=== PATIENT | female | born 1945 | race Caucasian/White ===

== ENCOUNTER 2019-05-21 12:35 | Outpatient (CLI) | payer MEDICARE, BC, SELFPAY ==
--- NOTE | 2019-05-21 12:50 | US_ITS ---
WS: [id number] THYROID ULTRASOUND HISTORY: HISTORY OF NODULE COMPARISON: 11/17/2018 Right lobe: 4.1 cm x 1.4 cm x 1.6 cm. Volume: 4.8 cm3. Normal size gland. Hypoechoic nodule with a few scattered cystic nodules in the RIGHT thyroid. Nodule is in the mid gland with ill-defined margins measuring 1.3 x 0.7 x 0.9 cm. Mild increased vascularit y. Left lobe: 5.2 cm x 1.8 cm x 2.1 cm. Volume: 10.4 cm3. Slightly enlarged thyroid. Multiple nodules ill-defined throughout the gland. Some these nodules cont ain increased vascularity. Largest nodule in the inferior pole measures 2.6 x 1.7 x 1.9 cm. Margins a re ill-defined and this nodule is hypervascular. There are additional scattered ill-defined nodules t hroughout the LEFT gland. Isthmus: 0.2 cm. US/US thyroid [id number] IMPRESSION: 1. Abnormal LEFT thyroid gland. Ill-defined nodule in the lower pole measures 2.6 x 1.7 x 1.9 cm. Slightly increased in size since the prior study. Concern i s for malignancy. Hypervascular nodule. Recommend surgical removal. 2. Moderate suspicion for malignancy smaller nodule in the mid RIGHT thyroid. This nodule remains stable in size.
== END 2019-05-21 12:36 | disposition home or self-care (01) ==
LOC: RAD 12:42 → RADWPI 12:55
PROVIDERS: Family Provider Family Medicine; PCP Family Medicine; Visit Provider Otolaryngology
DX: E04.1 Nontoxic single thyroid nodule (principal); R94.6 Abnormal results of thyroid function studies
CPT/HCPCS: 76536

== ENCOUNTER 2019-07-15 14:04 | Outpatient (CLI) | payer MEDICARE, BC, SELFPAY ==
--- NOTE | 2019-07-15 14:10 | MM_ITS ---
WS: [id number] BILATERAL SCREENING DIGITAL MAMMOGRAM WITH CAD HISTORY: SCREENING COMPARISON: 04/11/2018 and 03/28/2017 Bilateral CC and MLO views submitted. Computer aided detection analyzed. Breast composition: The breasts are heterogeneously dense, which may obscure small masses. No suspici ous masses, microcalcifications or architectural distortion. Stable asymmetries. Benign coarse calcif ication in the anterior LEFT breast. MM/[id number] IMPRESSION: BI-RADS: 2-Benign FOLLOW UP: 1 Year Follow-up
== END 2019-07-15 14:05 | disposition home or self-care (01) ==
LOC: RADSHAW 14:09
PROVIDERS: PCP Family Medicine; Visit Provider Family Medicine
DX: Z12.31 Encounter for screening mammogram for malignant neoplasm of breast (principal)
CPT/HCPCS: 77067

== ENCOUNTER 2020-07-22 07:16 | Outpatient (CLI) | payer MEDICARE, BC, SELFPAY ==
--- NOTE | 2020-07-22 07:23 | MM_ITS ---
WS: [id number] Bilateral screening digital mammogram, 07/22/2020 Clinical Data: SCREENING Comparison: 07/15/2019, 04/11/2018, 03/28/2017. Findings: The breast parenchymal pattern shows heterogeneous density No spiculated masses or clustered calcific ations are seen. There are no secondary signs of carcinoma. MM/[id number] Impression: 1. Negative bilateral mammogram unchanged. 2. Recommend annual screening mammograms. BIRADS: 1-Negative FOLLOW UP: 1 Year Follow-up The CAD power checker was used.
== END 2020-07-22 07:17 | disposition home or self-care (01) ==
LOC: RADSHAW 07:18
PROVIDERS: PCP Family Medicine; Visit Provider Family Medicine
DX: Z12.31 Encounter for screening mammogram for malignant neoplasm of breast (principal)
CPT/HCPCS: 77067

== ENCOUNTER → 2021-05-02 10:02 | Outpatient (BNVA) | payer MEDICARE, BC, SELFPAY | PROVIDERS: PCP Family Medicine; Visit Provider Family Medicine | DX: Z13.6 Encounter for screening for cardiovascular disorders (principal); E04.1 Nontoxic single thyroid nodule; Z79.899 Other long term (current) drug therapy | CPT/HCPCS: 80053; 80061; 81000; 85025 ==

== ENCOUNTER 2021-06-08 13:19 | Outpatient (CLI) | payer MEDICARE, BC, SELFPAY ==
--- NOTE | 2021-06-08 13:45 | US_ITS ---
WS: [id number] THYROID ULTRASOUND HISTORY: thyroid nodule COMPARISON: 05/21/2019, 11/17/2018 Right lobe: 1.4 cm x 1.6 cm x 1.8 cm (w x ap x l). Volume: 2.2 cm3. Hypoechoic nodule mid RIGHT thyroid with a few cystic areas measures 9 x 9 x 1.1 cm. No increase in s ize. Additional mild heterogeneity throughout the gland. Left lobe: 2.6 cm x 2.5 cm x 6.2 cm (w x ap x l). Volume: 20.5 cm3. Diffusely abnormal thyroid. Thyroid is enlarged and lobulated with multiple scattered hypoechoic nodu les. Numerous scattered echogenic foci. Multiple small nodules become confluent throughout the gland. Isthmus: 0.3 cm. US/US thyroid [id number] IMPRESSION: 1. Enlarged nodular LEFT thyroid a few echogenic foci. As discussed seen on th e prior study malignancy is not excluded. No significant interval change since the prior examination. Patient would benefit from surgical consultation. 2. No change hypoechoic nodule RIGHT thyroid.
== END 2021-06-08 13:20 | disposition home or self-care (01) ==
LOC: RAD 13:22
PROVIDERS: PCP Family Medicine; Visit Provider Family Medicine
DX: E04.1 Nontoxic single thyroid nodule (principal)
CPT/HCPCS: 76536

== ENCOUNTER → 2021-07-12 10:50 | Outpatient (BNVA) | payer MEDICARE, BC, SELFPAY | PROVIDERS: PCP Family Medicine; Visit Provider Otolaryngology | DX: E04.2 Nontoxic multinodular goiter (principal) | CPT/HCPCS: 99203; 99204 ==

== ENCOUNTER 2021-08-09 11:06 | Outpatient (CLI) | payer MEDICARE, BC, SELFPAY ==
--- NOTE | 2021-08-09 11:11 | MM_ITS ---
WS: [id number] BILATERAL SCREENING DIGITAL BREAST TOMOSYNTHESIS MAMMOGRAM WITH CAD HISTORY: Screening exam. COMPARISON: 07/22/2020 and 07/15/2019 Bilateral CC and MLO views with tomosynthesis and synthetic mammography submitted. Computer aided det ection analyzed. Breast composition: The breasts are heterogeneously dense, which may obscure small masses. No suspici ous masses, microcalcifications or architectural distortion. Benign calcifications LEFT breast. MM/[place] [id number] IMPRESSION: BI-RADS: 2-Benign FOLLOW UP: 1 Year Follow-up
== END 2021-08-09 11:07 | disposition home or self-care (01) ==
PROVIDERS: PCP Family Medicine; Visit Provider Family Medicine
DX: Z12.31 Encounter for screening mammogram for malignant neoplasm of breast (principal)
CPT/HCPCS: 77063; 77067

== ENCOUNTER → 2021-08-22 10:01 | Outpatient (BNVA) | payer MEDICARE, BC, SELFPAY | PROVIDERS: PCP Family Medicine; Visit Provider Family Medicine | DX: L65.9 Nonscarring hair loss, unspecified (principal) | CPT/HCPCS: 84443 ==

== ENCOUNTER 2022-01-19 23:34 | Emergency (ER) | payer MEDICARE, BC, SELFPAY ==
[2022-01-20 00:24] VITALS: BP 118/62; PULSE 90; RESP 18; TEMP 36.8; O2SAT 93
--- NOTE | 2022-01-20 00:41 | XRR_ITS ---
PROCEDURE INFORMATION: Exam: XR Chest Exam date and time: 01/20/2022 3:25 AM Age: 76 years old Clinical indication: Patient HX: C/O cough TECHNIQUE: Imaging protocol: Radiologic exam of the chest. Views: 1 view. COMPARISON: MR cervical spin wo con* [id number] 04/11/2017 2:30 PM FINDINGS: Lungs: Mild COPD. Left basilar hazy airspace disease. Pleural spaces: No pneumothorax or evidence of effusion. Heart/Mediastinum: The heart is normal size. Vascular calcification. Bones/joints: Unremarkable. XR/XR chest 1V portable [id number] IMPRESSION: Small left basilar probable pneumonia.
--- NOTE | 2022-01-20 02:45 | ED_ITS ---
HPI - URI/Sore Throat General: Chief Complaint: Upper Respiratory Infection Stated Complaint: cough Time Seen by Provider: 01/20/22 01:50 History of Present Illness: 76-year-old female comes in today with complaints of persistent cough and congestion for the last 2 weeks. Patient was seen by her primary care and ordered a prescription for azithromycin but was unable to product picker when the pharmacy lost the prescription. Patient then went to the urgent care and they wrote for prednisone and Phenergan DM. Patient reports minimal to no improvement after using the medication. Review of Systems Resp: Reports: dyspnea and non-productive cough [facility] [place] [facility] PFS: Medical History (Updated 01/20/22 @ 03:32 by GLADIS Pichardo) Asthma Bronchitis URI with cough and congestion Surgical History No pertinent past surgical history Family History Other CAD (coronary artery disease) Cancer Diabetes Social History Smoking and tobacco status: never smoked Alcohol intake: never Physical Exam Const: COMMON NORMALS: alert HENMT: COMMON NORMALS: normocephalic HEAD & SCALP: normocephalic Neck/C-Spine: COMMON NORMALS: no meningeal signs Resp: COMMON NORMALS: normal respiratory effort AUSCULTATION: diminished lung sounds GI: COMMON NORMALS: Soft to palpation and non-tender PALPATION: Yes Soft to palpation Neuro: SENSORIUM/ORIENTATION: Yes alert MENINGEAL SIGNS: Yes no meningeal signs Course Vital Signs: Vital signs: Vital Signs Temperature 98.2 F 01/20/22 00:24 Pulse Rate 90 01/20/22 00:24 Respiratory Rate 18 01/20/22 00:24 Blood Pressure 118/62 01/20/22 00:24 Pulse Oximetry 93 01/20/22 00:24 Oxygen Delivery Ut thod 01/20/22 00:24 MDM - URI/Sore Throat Medical Decision Making 76-year-old female comes in today with complaints of cough and congestion for about 2 weeks. Patient had been treated with prednisone and Phenergan DM with minimal to no relief. On exam patient has some inspiratory wheezing with decreased breath sounds in the bases. Vital signs are normal. Differential diagnosis includes but not limited to pneumonia, bronchitis, influenza, COVID- 19. Chest x-ray was unremarkable except for some mild haziness in the right middle lobe area. Most likely this is due to a viral syndrome but we will go ahead and treat for pneumonia due to the persistence of symptoms and patient's malaise. Patient was started on doxycycline 100 mg twice a day for 7 days. Patient was given a dose of dexamethasone and will continue on 4 mg of dexamethasone daily for the next 5 days. Patient was recommended to drink plenty of fluids use medications as directed and follow-up with primary care for further instruction or return to the ER for worsening symptoms. Lab Data Laboratory Results Influenza Type A Ag negative (Negative) 01/20/22 01:44 Influenza Type B Ag negative (Negative) 01/20/22 01:44 Discharge Plan Discharge Patient Disposition: Home Clinical Impression: Pneumonia Qualifiers: Pneumonia type: due to unspecified organism Laterality: right Lung location: middle lobe of lung Qualified Code(s): J18.9 - Pneumonia, unspecified organism Condition: Stable Prescriptions: New doxycycline monohydrate 100 mg capsule 100 mg PO BID 7 Days Qty: 14 0RF dexamethasone 4 mg tablet 4 mg PO DAILY Qty: 5 0RF albuterol sulfate 90 mcg/actuation HFA aerosol inhaler 2 inh inhalation Q4H PRN (Reason: shortness of breath or wheezing) Qty: 8.5 0RF No Action aspirin 81 mg tablet,delayed release (DR/EC) 81 mg PO DAILY biotin 5 mg capsule 5 mg PO DAILY zinc 50 mg tablet 50 mg PO DAILY iron 18 mg tablet 18 mg PO DAILY benzonatate 100 mg capsule 100 mg PO TID PRN (Reason: cough) Qty: 14 0RF azithromycin 250 mg tablet See Rx Instructions PO .COMPLEX Qty: 6 0RF Rx Instructions: For 250 mg dose pack: take 500 mg today (day 1), then 250 mg for 4 days (days 2-5) PO cetirizine [Allergy Relief (cetirizine)] 10 mg tablet 10 mg PO DAILY PRN (Reason: congestion/post nasal drip) Qty: 30 0RF Discharge Orders: Discharge ED (Routine); Ordered 01/20/22 Ordered By: Jerome Temple Referrals: Itzel Garcia DO [Primary Care Provider] - Discharge Diet: Usual diet Discharge Activity: Increase activity as tolerated Patient Instructions: Pneumonia (ED) Activity Restrictions/Additional Instructions: Take doxycycline 100 mg 2 times a day for the next 7 days. Use dexamethasone daily 1 tablet for the next 5 days. Continue with albuterol inhaler 2 puffs every 4 hours as needed for shortness of breath, wheezing, or coughing. Return to the ER for worsening symptoms such as increased shortness of breath, inability to hold fluids down, severe chest pain, or new concerns. Coding Level of Care Code ED Out Of School Hours Care Worker for Roxi Chandra
[2022-01-20 03:29] LABS: Influenza A by IFA negative (Negative); Influenza B by IFA negative (Negative)
[2022-01-20] MEDS: doxycycline 100 mg Tablet PO (03:36)
[2022-01-20] MEDS: dexamethasone 10 mg/mL INJ IM (03:37)
[2022-01-20 03:45] VITALS: BP 141/66; PULSE 85; RESP 24; O2SAT 94
== END 2022-01-20 03:50 | disposition home or self-care (01) ==
PROVIDERS: Emergency Medicine; Emergency Provider Nurse Practitioner Family; PCP Family Medicine
DX: J18.9 Pneumonia, unspecified organism (principal); Z79.82 Long term (current) use of aspirin
CPT/HCPCS: 71045; 87804; 96372; 99284; J1100

== ENCOUNTER → 2022-05-08 08:20 | Outpatient (BNVA) | payer MEDICARE, BC, SELFPAY | PROVIDERS: PCP Family Medicine; Visit Provider Otolaryngology | DX: E04.2 Nontoxic multinodular goiter (principal); L65.9 Nonscarring hair loss, unspecified | CPT/HCPCS: 99213 ==

== ENCOUNTER 2022-05-28 06:46 | Outpatient (CLI) | payer MEDICARE, BC, SELFPAY ==
--- NOTE | 2022-05-28 07:00 | US_ITS ---
WS: [id number] THYROID ULTRASOUND HISTORY: thyroid goiter COMPARISON: 06/08/2021 Right lobe: 1.7 cm x 1.9 cm x 4.7 cm (w x ap x l). Volume: 7.6 cm3. Mixed cystic and solid nodule with a few cystic areas mid RIGHT thyroid measures 10 x 9 x 12 mm. Not significantly increased in size since the prior study. No echogenic foci. Left lobe: 2.1 cm x 2.0 cm x 6.0 cm (w x ap x l). Volume: 12.7 cm3. Mildly enlarged thyroid. Small cystic areas scattered throughout the thyroid. Several scattered echog enic foci. No discrete mass. Isthmus: 0.2 cm. US/US thyroid [id number] IMPRESSION: 1. Heterogeneous thyroid gland similar to 05/31/2021. 2. Enlarged LEFT thyroid with multiple scattered cystic nodules. Most consiste nt with colloid cysts. 3. Stable mixed cystic and solid nodule RIGHT thyroid.
[2022-05-28 07:32] LABS: Free T4 Free Thyroxine 1.24 ng/dL (0.82-1.77); T3 Free 2.7 PG/ML (2.0-4.4); Thyroid Stimulating Hormone 0.88 uIU/mL (0.27-4.20)
== END 2022-05-28 06:47 | disposition home or self-care (01) ==
LOC: RAD 06:47
PROVIDERS: PCP Family Medicine; Visit Provider Otolaryngology
DX: E04.2 Nontoxic multinodular goiter (principal); L65.9 Nonscarring hair loss, unspecified
CPT/HCPCS: 36415; 76536; 84439; 84443; 84481

== ENCOUNTER → 2022-06-11 09:25 | Outpatient (BNVA) | payer MEDICARE, BC, SELFPAY | PROVIDERS: PCP Family Medicine; Visit Provider Otolaryngology | DX: E04.2 Nontoxic multinodular goiter (principal) | CPT/HCPCS: 99212 ==

== ENCOUNTER → 2022-07-25 07:34 | Outpatient (BNVA) | payer MEDICARE, BC, SELFPAY | PROVIDERS: PCP Family Medicine; Visit Provider Nurse Practitioner Family | DX: R06.00 Dyspnea, unspecified (principal); J43.8 Other emphysema; R91.1 Solitary pulmonary nodule | CPT/HCPCS: 71046 ==

== ENCOUNTER 2022-07-27 06:14 | Outpatient (CLI) | payer MEDICARE, BC, SELFPAY ==
--- NOTE | 2022-07-27 06:30 | CT_ITS ---
WS: [id number] CT chest w con* [id number] HISTORY: Nodule right lung TECHNIQUE: Axial imaging performed through the thorax. Coronal and sagittal reformats are submitted. All CT scans at [facility] use at least one of these dose optimization techniques: automated exposure control; mA and/or kV adjustment per patient size (includes targeted exams where dose is mat ched to clinical indication); or iterative reconstruction. CONTRAST: Omnipaque 350; 100 mL IV. DLP: 179.21 mGy.cm COMPARISON: Chest radiograph 07/25/2022 Lungs and central airway: Hyperexpanded lungs from emphysema. Nodule seen on the recent radiograph in the RIGHT upper lobe corresponds to an area of pleural thickening and nodularity towards the RIGHT a pex measuring 10 mm. Additional smaller areas of pleural thickening bilaterally at the apices. Additi onal mild interstitial thickening in the RIGHT upper lobe. Mild mild hazy attenuation with bilateral scattered areas of tree-in-bud airspace disease, greatest in the lower lobes and lingula. Small amoun t of mucus plugging along the bronchus RIGHT upper lobe. Pleura: Normal. No pleural effusion. Heart and pericardium: Mild cardiomegaly. Small pericardial effusion Mediastinum and velasquez: No mediastinum or hilar adenopathy. Vessels: Moderate atherosclerosis aorta. Normal size pulmonary artery. Chest wall and lower neck: Mildly enlarged thyroid with several thyroid nodules. Goiter was described on a prior ultrasound of 05/28/2022. Upper abdomen: Hepatic cyst 13 mm RIGHT lobe. Partially visualized cystic mass LEFT kidney measures 1 .5 cm. Osseous structures: No destructive process. CT/CT chest w con* [id number] IMPRESSION: 1. RIGHT upper lobe nodule seen on the recent chest radiograph corresponds wit h pleural nodularity measuring 10 mm. There are additional smaller pleural nodu les at the apices. Most likely benign pleural tagging. Recommend noncontrast ch est CT follow-up in 3 months. 2. Additional bilateral tree-in-bud airspace disease. Typically with seen with endobronchial pneumonia or pneumonitis/aspiration pneumonitis.
[2022-07-27] MEDS: iohexol 350 mg/mL 500 mL Btl (per mL) IV (07:40)
[2022-07-27 07:41] LABS: Blood Urea Nitrogen 14 mg/dL (8-23)
== END 2022-07-27 06:15 | disposition home or self-care (01) ==
PROVIDERS: PCP Family Medicine; Visit Provider Family Medicine
DX: R91.8 Other nonspecific abnormal finding of lung field (principal); R93.89 Abnormal findings on diagnostic imaging of other specified body structures
CPT/HCPCS: 71260; 82565; 84520; Q9967

== ENCOUNTER 2022-09-27 08:00 | Outpatient (CLI) | payer MEDICARE, BC, SELFPAY ==
[2022-09-27 08:14] VITALS: PULSE 79; RESP 18; O2SAT 94
[2022-09-27] MEDS: albuterol 2.5 mg/3 mL Neb INHALATION (08:14)
[2022-09-27 08:19] VITALS: PULSE 83
== END 2022-09-27 08:01 | disposition home or self-care (01) ==
LOC: RT 08:01
PROVIDERS: PCP Family Medicine; Visit Provider Family Medicine
DX: R05.3 Chronic cough (principal)
CPT/HCPCS: 94060; 94726; 94729; J7613

== ENCOUNTER → 2022-10-16 17:10 | Outpatient (BNVA) | payer MEDICARE, BC, SELFPAY | PROVIDERS: PCP Family Medicine; Referring Provider Family Medicine; Visit Provider Internal Medicine Pulmonary Disease | DX: J30.2 Other seasonal allergic rhinitis (principal); J18.9 Pneumonia, unspecified organism; J47.9 Bronchiectasis, uncomplicated; R05.3 Chronic cough; R91.8 Other nonspecific abnormal finding of lung field; Z86.16 Personal history of COVID-19 | CPT/HCPCS: 36415; 82785; 86003; 99204 ==

== ENCOUNTER 2022-11-01 07:44 | Outpatient (CLI) | payer MEDICARE, BC, SELFPAY ==
--- NOTE | 2022-11-01 08:00 | CT_ITS ---
WS: [id number] CT CHEST TECHNIQUE: Noncontrast CT of the chest with coronal and sagittal reformatted images. CLINICAL INFORMATION: Lung nodule COMPARISON: CT chest 07/27/2022 DLP: 199.[address] scans at [facility] use at least one of these dose optimization techniques: automated e xposure control; mA and/or kV adjustment per patient size (includes targeted exams where dose is matc hed to clinical indication); or iterative reconstruction. FINDINGS: Again seen is pleural nodularity in both lung apices stable compared to the prior examination. Mild t raction bronchiectasis. Tree-in-bud infiltrates in the RIGHT upper lobe, RIGHT middle lobe, and RIGHT lower lobe and LEFT lower lobe similar to previous. Additional tree-in-bud opacities in the lingula. No focal consolidation or pleural fluid. No mediastinal or hilar lymphadenopathy. No axillary lymphadenopathy. Incidental RIGHT hepatic cyst is stable. Normal GE junction. Moderate pericardial effusion appears pr ogressed compared to previous. Mild thoracic kyphosis with hypertrophic changes. Multinodular thyroid . Prominent ascending thoracic aorta measuring 3.7 cm unchanged. Mild aortic calcification. Mild rigo nary calcification. IMPRESSION: 1. Moderate pericardial effusion progressed compared to previous. 2. No other significant changes. 3. Pleural thickening in the lung apices unchanged compared to previous. 4. Stable bilateral tree-in-bud opacities described above. 5. Prominent ascending thoracic aorta measuring 3.7 cm unchanged. 6. Small bilateral thyroid nodules are stable LEFT greater than RIGHT.
== END 2022-11-01 07:45 | disposition home or self-care (01) ==
PROVIDERS: PCP Family Medicine; Visit Provider Family Medicine
DX: R91.1 Solitary pulmonary nodule (principal)
CPT/HCPCS: 71250

== ENCOUNTER 2022-11-07 07:56 | Outpatient (CLI) | payer MEDICARE, BC, SELFPAY | END 2022-11-07 07:57 | disposition home or self-care (01) | PROVIDERS: PCP Family Medicine; Visit Provider Internal Medicine Pulmonary Disease | DX: J18.9 Pneumonia, unspecified organism (principal) | CPT/HCPCS: 87015; 87070; 87116; 87205; 87206; 87801 ==

== ENCOUNTER 2022-11-09 06:20 | Outpatient (CLI) | payer MEDICARE, BC, SELFPAY ==
--- NOTE | 2022-11-09 06:45 | USCV_ITS ---
Keila Bedolla Age: 77 Gender: F : 1945 Exam Date: 11/09/2022 06:29 Ordering Phys: Jurgen Sloan MD Technologist: Sreekanth Morgan Exam Location: [facility] Indication: BP: 125 / 80 HR: 94 Rhythm: Sinus Technical Quality: Adequate MEASUREMENTS (Male / Female) Normal Values 2D ECHO LV Diastolic Diameter PLAX 3.2 cm 4.2 - 5.9 / 3.9 - 5.3 cm LV Systolic Diameter PLAX 2.0 cm IVS Diastolic Thickness 1.4 cm 0.6 - 1.0 / 0.6 - 0.9 cm IVS Systolic Thickness 1.5 cm LVPW Diastolic Thickness 1.2 cm 0.6 - 1.0 / 0.6 - 0.9 cm LVPW Systolic Thickness 1.3 cm LVOT Diameter 2.0 cm LV Ejection Fraction 2D Teich 69.2 % LV Ejection Fraction MOD 2C 72.4 % LV Ejection Fraction 2C AL 75.3 % LA Diameter 3.1 cm IVC Diameter 1.8 cm M-MODE Aortic Annulus Diameter 3.4 cm LA Ao Ratio MM 1.0 MV E Point Septal Separation 0.7 cm DOPPLER AV Peak Velocity 125.0 cm/s LVOT Peak Velocity 100.0 cm/s AV Area Cont Eq vti 2.3 cm squared AV Area Cont Eq pk 2.4 cm squared MV Area PHT 4.7 cm squared Mitral E to A Ratio 0.7 MV E' Velocity 40.2 cm/s Mitral E to MV E' Ratio 5.4 Mitral E to LV E' Lateral Ratio 10.7 Mitral E to LV E' Septal Ratio 3.6 TR Peak Velocity 277.7 cm/s TR Peak Gradient 30.8 mmHg TV Peak E Velocity 82.0 cm/s Right Atrial Pressure 3.0 mmHg Pulmonary Artery Systolic Pressu 33.8 mmHg RV Acceleration Time 0.1 s FINDINGS Left Ventricle Left ventricle is normal in size. LV systolic function is normal with EF of 60-65%. No regional wall motion abnormalities are seen. Grade 1 diastolic dysfunction. Right Ventricle Normal in size and function Right Atrium Normal in size Left Atrium Normal in size Mitral Valve Structurally normal mitral valve. Aortic Valve Structurally normal aortic valve. No significant stenosis or regurgitation. Tricuspid Valve Mild tricuspid regurgitation. RVSP is 35 to 40 mmHg. This is consistent with mild pulmonary hypertension. Pulmonic Valve Not well-visualized Pericardium Small sized pericardial effusion Aorta Normal in size IVC Appears to be normal CONCLUSIONS LV systolic function is normal with EF of 60 to 65% Grade 1 diastolic dysfunction Mild tricuspid regurgitation Mild pulmonary hypertension Small sized pericardial effusion No comparison studies are available. Berry Monreal MD (Electronically Signed) Final Date: 13 November 2022 09:47 S
== END 2022-11-09 06:21 | disposition home or self-care (01) ==
PROVIDERS: PCP Family Medicine; Visit Provider Internal Medicine Pulmonary Disease
DX: I31.39 Other pericardial effusion (noninflammatory) (principal)
CPT/HCPCS: 93306

== ENCOUNTER → 2022-11-20 15:16 | Outpatient (BNVA) | payer MEDICARE, BC, SELFPAY | PROVIDERS: PCP Family Medicine; Referring Provider Internal Medicine Pulmonary Disease; Visit Provider Internal Medicine Cardiovascular Disease | DX: R06.02 Shortness of breath (principal); I31.9 Disease of pericardium, unspecified; R07.9 Chest pain, unspecified; I31.39 Other pericardial effusion (noninflammatory); I44.0 Atrioventricular block, first degree; R03.0 Elevated blood-pressure reading, without diagnosis of hypertension; J47.9 Bronchiectasis, uncomplicated | CPT/HCPCS: 93005; 99204 ==

== ENCOUNTER 2022-11-21 07:51 | Outpatient (CLI) | payer MEDICARE, BC, SELFPAY ==
[2022-11-21 08:32] LABS: Troponin T (5th) Once 9 ng/L (0-10)
[2022-11-21 08:37] LABS: Anion Gap 12.8 (5-19); Blood Urea Nitrogen 18 mg/dL (8-23); Carbon Dioxide 28 mmol/L (22-29); Chloride 105 mmol/L (98-107); Glucose 97 mg/dL (65-115); NT Pro B Type Natriuretic Pept 740 pg/mL (0-450); Osmolality Calculated 294 mOsm/kg (285-295); Potassium 4.8 mmol/L (3.5-5.1); Sodium 141 mmol/L (136-145)
== END 2022-11-21 07:52 | disposition home or self-care (01) ==
LOC: LAB 07:57
PROVIDERS: PCP Family Medicine; Visit Provider Internal Medicine Cardiovascular Disease
DX: R06.02 Shortness of breath (principal); I31.9 Disease of pericardium, unspecified; I31.39 Other pericardial effusion (noninflammatory)
CPT/HCPCS: 36415; 80048; 83880; 84484; 86141

== ENCOUNTER 2022-12-07 07:18 | Outpatient (CLI) | payer MEDICARE, BC, SELFPAY ==
--- NOTE | 2022-12-07 07:39 | ECG_ITS ---
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 Interpretive Statements NAME OF STUDY: EXERCISE SESTAMIBI STRESS TEST INDICATION: CHF Baseline blood pressure of 141/84 mm Hg, heart rate of 63 beats per minute. EKG showed sinus rhythm, normal axis with normal ST-Ts. ??? The patient exercised for 6 min 31 seconds on a [standard Rubén protocol]. Patient attained a maximum heart rate of 168 beats per minute( 115 % of the maximum predicted heart rate) with a blood pressure at the peak exercise of 140/52 mm Hg. The EKG at the peak exercise revealed no significant ST-T wave changes. Patient did [not have any chest pain or any significant arrhythmis with the exercise]??? During the recovery phase, there were no new changes. ??? Blood pressure at the end of the recovery phase was 163/84 mm Hg with a heart rate of 84 beats per minute. ??? CONCLUSION: 1. Normal EKG response to treadmill exercise. 2. No exercise-induced chest pain or cardiac arrhythmia. 3. Excellent exercise tolerance, attained a maximum of 10.2 METs. 4. Baseline normal blood pressure with normal response to exercise. 5. Perfusion scan will be documented separately. Electronically Signed On 12-16-2022 22:22:09 DIGITAL STRATEGIST by Kimberly Valdez M.D. [id number]
--- NOTE | 2022-12-07 07:39 | NMCV_ITS ---
NM smita perf SPECT r/s* [id number] Keila Bedolla Age: 77 Gender: F : 1945 Exam Date: 12/07/2022 08:32 Ordering Phys: Jessica Hernández MD ([email or web address]) Technologist: RADHA Galvan Exam Location: [facility] Indications: PERICARDIAL EFFUSION, HIGH BLOOD PRESSURE STRESS TEST [facility] IMAGE PROTOCOL Rest/Stress 1 Exercise Day Radiopharmaceutical Dose (mCi) Administration Site Administered by Rest: Tc-99m 10.7 IV RADHA Galvan Sestamibi Stress:Tc-99m 32.4 IV RADHA Galvan Sestamibi Rest: 60 Discovery 630 Stress: 15 Discovery 630 Radiopharmaceutical was injected at 87 % maximum heart rate. Images obtained in supine and prone position. SPECT RESULTS Technical Quality: Excellent Raw Data Analysis: Normal Image Corrections: No attenuation or motion correction applied Summed Stress Score: 1 Summed Rest Score: 9 Summed Difference Score: 0 PERFUSION FINDINGS SPECT images demonstrate homogeneous tracer distribution throughout the myocardium on stress images. FUNCTIONAL RESULTS (calculated via Gated SPECT) Stress Image LV EF (%): 75 Stress EDV (mL):75 TID: 0.92 Stress ESV (mL):19 FUNCTIONAL FINDINGS: The left ventricle is normal in size. Transient Ischemia Dilatation of 0.92. The left ventricular ejection fraction is normal with a value of 75%. There is hyperdynamic left ventricular global systolic function. There is hyperdynamic left ventricular wall thickening. IMPRESSIONS 1. Myocardial perfusion imaging is normal. 2. Overall left ventricular systolic function is normal without regional wall motion abnormalities, LVEF=75%. 3. EKG portion of the study will be reported separately. 4. Scan indicates low risk for cardiac events. Kimberly Valdez MD (Electronically Signed) Final Date: 09 December 2022 14:08 S
[2022-12-07 07:40] VITALS: BMI 19.1
[2022-12-07 09:33] VITALS: BP 163/84; PULSE 89
== END 2022-12-07 07:19 | disposition home or self-care (01) ==
LOC: CDL 07:19
PROVIDERS: PCP Family Medicine; Visit Provider Internal Medicine Cardiovascular Disease
DX: I11.0 Hypertensive heart disease with heart failure (principal); I50.9 Heart failure, unspecified; I31.39 Other pericardial effusion (noninflammatory)
CPT/HCPCS: 36415; 78452; 93017; 96374; A9500

== ENCOUNTER → 2023-02-12 12:58 | Outpatient (BNVA) | payer MEDICARE, BC, SELFPAY | PROVIDERS: PCP Family Medicine; Visit Provider Nurse Practitioner Family | DX: I10 Essential (primary) hypertension (principal); I31.39 Other pericardial effusion (noninflammatory); Z79.82 Long term (current) use of aspirin | CPT/HCPCS: 99214 ==

== ENCOUNTER → 2023-02-18 08:02 | Outpatient (BNVA) | payer MEDICARE, BC, SELFPAY | PROVIDERS: PCP Family Medicine; Visit Provider Internal Medicine Pulmonary Disease | DX: J47.9 Bronchiectasis, uncomplicated (principal); R05.3 Chronic cough; J30.2 Other seasonal allergic rhinitis; I31.39 Other pericardial effusion (noninflammatory); Z86.16 Personal history of COVID-19; R91.8 Other nonspecific abnormal finding of lung field | CPT/HCPCS: 99214 ==

== ENCOUNTER 2023-05-20 07:48 | Outpatient (CLI) | payer MEDICARE, BC, SELFPAY ==
--- NOTE | 2023-05-20 07:53 | MM_ITS ---
WS: [id number] BILATERAL SCREENING DIGITAL TOMOSYNTHESIS MAMMOGRAM WITH CAD HISTORY: SCREENING COMPARISON: 08/09/2021, 07/22/2020 Bilateral CC and MLO views with tomosynthesis and synthetic mammography submitted. Computer aided det ection analyzed. Breast composition: There are scattered areas of fibroglandular density. No suspicious masses, microc alcifications or architectural distortion. Benign coarse calcifications LEFT breast. There are additi onal smaller punctate calcifications scattered throughout each breast which are benign. IMPRESSION: MM/[place] [id number] BI-RADS: 2-Benign FOLLOW UP: 1 Year Follow-up
== END 2023-05-20 07:49 | disposition home or self-care (01) ==
LOC: RAD 07:50
PROVIDERS: PCP Family Medicine; Visit Provider Family Medicine
DX: Z12.31 Encounter for screening mammogram for malignant neoplasm of breast (principal)
CPT/HCPCS: 77063; 77067

== ENCOUNTER 2023-07-29 07:34 | Outpatient (CLI) | payer MEDICARE, BC, SELFPAY ==
--- NOTE | 2023-07-29 07:45 | USCV_ITS ---
Keila Bedolla Age: 77 Gender: F : 1945 Exam Date: 07/29/2023 08:01 Ordering Phys: Alexandra Underwood Technologist: Exam Location: [facility] Indication: SOB CP BP: 125 / 70 HR: 61 Rhythm: Sinus Technical Quality: Adequate MEASUREMENTS (Male / Female) Normal Values 2D ECHO LV Diastolic Diameter PLAX 4.5 cm 4.2 - 5.9 / 3.9 - 5.3 cm IVS Diastolic Thickness 1.0 cm 0.6 - 1.0 / 0.6 - 0.9 cm IVS Systolic Thickness 1.1 cm LVPW Diastolic Thickness 1.1 cm 0.6 - 1.0 / 0.6 - 0.9 cm LVPW Systolic Thickness 1.3 cm LVOT Diameter 2.1 cm LV Ejection Fraction 2D Teich 65.7 % LV Ejection Fraction MOD 2C 69.1 % LV Ejection Fraction 2C AL 70.9 % LA Diameter 3.2 cm RA Systolic Volume 4C AL 43.6 ml RA Systolic Volume 4C MOD 41.1 ml LA Sys Volume AL 45.9 cm cubed LA Sys Volume Index AL 28.1 cm cubed/m squared Aorta at Sinotubular Diameter 3.0 cm IVC Diameter 2.5 cm M-MODE LA Ao Ratio MM 0.8 AV Cusp Separation MM 1.6 cm DOPPLER AV Peak Velocity 120.0 cm/s LVOT Peak Velocity 65.0 cm/s AV Area Cont Eq vti 1.9 cm squared AV Area Cont Eq pk 1.8 cm squared MV Peak Velocity 98.0 cm/s MV Area PHT 3.9 cm squared Mitral E to A Ratio 0.9 TR Peak Velocity 221.0 cm/s TR Peak Gradient 19.5 mmHg TV Peak E Velocity 84.0 cm/s Right Atrial Pressure 3.0 mmHg Pulmonary Artery Systolic Pressu 22.5 mmHg PV Peak Velocity 98.0 cm/s FINDINGS Left Ventricle Normal left ventricular size, systolic function and wall thickness, with no regional wall motion abnormalities. Left ventricular ejection fraction is estimated at 60 %.Grade I/IV diastolic dysfunction (abnormal relaxation filling pattern), normal to mildly elevated filling pressures. Right Ventricle The right ventricle is normal in size and function. Right Atrium The right atrium is normal in size. Left Atrium The left atrium is normal in size. Mitral Valve Thickened mitral valve. No mitral valve stenosis. Mild mitral valve regurgitation. Aortic Valve Structurally normal aortic valve without significant sclerosis or stenosis. There is trace aortic regurgitation. Tricuspid Valve Thickened tricuspid valve. Moderate tricuspid valve regurgitation. Pulmonic Valve Structurally normal pulmonic valve without significant stenosis. There is no pulmonic regurgitation. Pericardium Normal pericardium without effusion. Aorta Normal ascending aorta dimension. IVC The inferior vena cava appears normal. CONCLUSIONS 1-Normal left ventricular size, systolic function and wall thickness, with no regional wall motion abnormalities. Left ventricular ejection fraction is estimated at 60 %.Grade I/IV diastolic dysfunction (abnormal relaxation filling pattern), normal to mildly elevated filling pressures. 2-Thickened tricuspid valve. Moderate tricuspid valve regurgitation. 3-Thickened mitral valve. No mitral valve stenosis. Mild mitral valve regurgitation. 4-There is no pericardial effusion. 5-Right atrial pressure is around 5 mm of mercury. Kirstin Alberts MD (Electronically Signed) Final Date: 30 July 2023 18:50 S
== END 2023-07-29 07:35 | disposition home or self-care (01) ==
PROVIDERS: PCP Family Medicine; Visit Provider Nurse Practitioner Family
DX: I11.0 Hypertensive heart disease with heart failure (principal); I31.39 Other pericardial effusion (noninflammatory); I07.1 Rheumatic tricuspid insufficiency
CPT/HCPCS: 93306